=== PATIENT | male | born 2000 | race African-American/Black ===

== ENCOUNTER 2023-12-20 16:41 | Emergency (ER) | payer SELFPAY ==
[2023-12-20 17:38] LABS: Absolute Lymphocytes (CBC) 1.5 K/uL (0.7-4.9); Absolute Monocytes 1.1 K/uL (0.1-1.3); Absolute Neutrophil 13.8 K/uL (1.8-8.0); Basophils % 0.2 % (0-1.3); Eosinophils % 0.1 % (0-4.4); Hematocrit 46.6 % (39.6-49.0); Hemoglobin 15.4 g/dL (13.6-17.9); Lymphocytes % 8.9 % (15.3-44.8); MCV 81.9 fL (80-100); Monocytes % 6.7 % (3.3-12.3); Neutrophils % 84.1 % (41.7-73.7); Platelets 292 thou/uL (152-406); RBC Red Blood Cell Count 5.69 M/uL (4.33-5.43); Red Cell Distribution Width 14.5 % (12.1-15.2)
[2023-12-20 18:14] LABS: Albumin 4.8 g/dL (3.4-5.0); Albumin/Globulin Ratio 1.3 (1.1-1.8); Anion Gap 11.7 mEq/L (5.0-15.0); Bilirubin Total 0.7 mg/dL (0.2-1.0); Globulin 3.8 g/dL (2.3-3.5); Potassium 3.7 mEq/L (3.5-5.1); Protein, Total 8.6 g/dL (6.4-8.2)
[2023-12-20] MEDS ORDERED: NA CHLORIDE 0.9% 1,000 ML ONE (18:37)
--- NOTE | 2023-12-20 19:01 | ER ---
Nurse's Notes [facility] Name: Sandoval Clifford Age: 23 yrs Sex: Male : 2000 Arrival Date: 12/20/2023 Time: 16:41 Bed 17 [facility] MD: Diagnosis: Heat fatigue, transient Presentation: 12/19 16:47 Chief complaint: Patient states: working outside, nausea/vomiting. Coronavirus screen: aa5 nausea, vomiting. Ebola Screen: Patient denies travel to an Ebola-affected area in the 21 days before illness onset. Initial Sepsis Screen: Does the patient meet any 2 criteria? No. Patient's initial sepsis screen is negative. Does the patient have a suspected source of infection? No. Patient's initial sepsis screen is negative. Risk Assessment: Do you want to hurt yourself or someone else? Patient reports no desire to harm self or others. Onset of symptoms was December 20, 2023. 16:47 Acuity: SIMONE 3 aa5 16:47 Method Of Arrival: EMS: [facility] aa5 16:47 Care prior to arrival: Medication(s) given: Normal saline infusion, 1000 mL, zofran 4 aa5 mg, IV initiated. 18 GA, in the right antecubital area, Glucose check: 76. Historical: - Allergies: 16:47 No Known Allergies; aa5 - PMHx: 16:47 None; aa5 - PSHx: 16:47 None; aa5 - Immunization history:: Adult Immunizations unknown. - Infectious Disease History:: Denies. - Social history:: Smoking status: Reported history of juuling and/or vaping. Screenin:42 [facility] ED Fall Risk Assessment (Adult) History of falling in the last 3 months, mb9 including since admission No falls in past 3 months (0 pts) Confusion or Disorientation No (0 pts) Intoxicated or Sedated No (0 pts) Impaired Gait No (0 pts) Mobility Assist Device Used No (0 pt) Altered Elimination No (0 pt) Score/Fall Risk Level 0 - 2 = Low Risk Oriented to surroundings, Maintained a safe environment, Educated pt \T\ family on fall prevention, incl call for assistance when getting out of bed. Abuse screen: Denies threats or abuse. Nutritional screening: No deficits noted. Tuberculosis screening: No symptoms or risk factors identified. Assessment: 18:41 General: Appears in no apparent distress. Behavior is calm, cooperative. Pain: Denies mb9 pain. Neuro: Jensen Agitation-Sedation Scale (RASS): 0 - Alert and Calm Level of Consciousness is awake, alert, obeys commands, Oriented to person, place, time, situation, Appropriate for age. Cardiovascular: Patient's skin is warm and dry. Respiratory: Airway is patent Respiratory effort is even, unlabored, Respiratory pattern is regular, symmetrical. GI: Abdomen is flat, non-distended, Bowel sounds present X 4 quads. Abd is soft and non tender X 4 quads. : No signs and/or symptoms were reported regarding the genitourinary system. EENT: No signs and/or symptoms were reported regarding the EENT system. Derm: Skin is pink, warm \T\ dry. Musculoskeletal: Range of motion: intact in all extremities. Vital Signs: 16:47 BP 109 / 74; Pulse 90; Resp 18 S; Temp 97.5(TE); Pulse Ox 100% on R/A; Weight 54.43 kg aa5 (R); Height 5 ft. 6 in. (R); 18:42 BP 118 / 74; Pulse 84; Resp 16; Pulse Ox 100% on R/A; mb9 16:47 Body Mass Index 19.37 (54.43 kg, 167.64 cm) aa5 ED Course: 16:46 Patient arrived in ED. ec2 16:46 Munir Heath MD is Attending Physician. ec2 16:47 Arm band placed on. aa5 16:48 Triage completed. aa5 17:29 CK Sent. 6 17:29 CMP Sent. 6 17:29 CBC with Diff Sent. 6 17:29 Initial lab(s) drawn, by va, sent to lab. Inserted saline lock: 22 gauge in left bc6 antecubital area, using aseptic technique. Blood collected. 18:36 Hillary Meek, SHARITA is Primary Nurse. mb9 18:42 Placed in gown. Bed in low position. Call light in reach. Side rails up X 1. Provided mb9 Education on: press call light if needing anything. Client placed on continuous cardiac and pulse oximetry monitoring. NIBP monitoring applied. 18:42 No provider procedures requiring assistance completed. mb9 19:06 IV discontinued, intact, bleeding controlled, No redness/swelling at site. Pressure mb9 dressing applied. Administered Medications: 18:41 Drug: NS 0.9% IV 1000 ml IV at 1 bolus Per protocol; 1000 mL bolus Route: IV; Rate: 1 mb9 bolus; Site: left antecubital; 19:07 Follow up: Response: No adverse reaction; IV Status: Completed infusion mb9 Medication: 18:42 VIS not applicable for this client. mb9 Outcome: 19:00 Discharge ordered by . ec2 19:06 Discharged to home ambulatory, mb9 19:06 Condition: stable 19:06 Discharge instructions given to patient, Instructed on discharge instructions, follow up and referral plans. Demonstrated understanding of instructions, follow-up care, 19:07 Patient left the ED. mb9 Signatures: Guerda Palumbo RN RN aa5 Hillary Meek RN RN mb9 Jazzy Daniels6 Munir Heath MD MD ec2 Corrections: (The following items were deleted from the chart) 19:06 18:42 Pulse 84bpm; Resp 16bpm; Pulse Ox 100% RA; mb9 mb9
--- NOTE | 2023-12-20 19:01 | EDPHYS ---
Physician Documentation [facility] Name: Sandoval Clifford Age: 23 yrs Sex: Male : 2000 Arrival Date: 12/20/2023 Time: 16:41 Bed 17 Private MD: ED Physician Munir Heath HPI: 12/19 16:46 This 23 yrs old Male presents to ER via Unassigned with complaints of concern for ec2 dehydration. 16:46 Patient arrives today due to concern for dehydration. States that he was working ec2 outdoors, working in the heat, felt lightheaded, nauseous and dehydrated like he was in a pass out. Denies any other symptoms, EMS reports they had given him a liter of crystalloid as well as Zofran, patient reports improvement in his nausea. . Historical: - Allergies: 16:47 No Known Allergies; aa5 - PMHx: 16:47 None; aa5 - PSHx: 16:47 None; aa5 - Immunization history:: Adult Immunizations unknown. - Infectious Disease History:: Denies. - Social history:: Smoking status: Reported history of juuling and/or vaping. ROS: 16:46 Constitutional: as per hpi ec2 Exam: 16:46 Constitutional: GEN: NAD Head: atraumatic Eyes: EOMI Ears: External ears are ec2 normal. CV: regular rate LUNGS: no respiratory distress ABD: non-distended SKIN: no evidence of rashes MSK: no evidence of trauma NEURO: moves all extremities equally Vital Signs: 16:47 BP 109 / 74; Pulse 90; Resp 18 S; Temp 97.5(TE); Pulse Ox 100% on R/A; Weight 54.43 kg aa5 (R); Height 5 ft. 6 in. (R); 18:42 BP 118 / 74; Pulse 84; Resp 16; Pulse Ox 100% on R/A; mb9 16:47 Body Mass Index 19.37 (54.43 kg, 167.64 cm) aa5 MDM: 16:46 Patient medically screened. ec2 16:46 Data reviewed: vital signs. ED course: Patient arrives today due to concern for ec2 dehydration as well as lightheadedness. Examination remarkable for well-appearing nontoxic and appears otherwise in no acute distress with a reassuring examination. Will obtain lab work, CK, give crystalloid and further assess. Differential diagnose include dehydration, electrolyte disturbances, anemia, rhabdomyolysis.. 18:09 ED course: Slight leukocytosis noted, patient without any obvious bacterial source of ec2 infection. Patient does have some nausea and vomiting, suspect this is more heat related . 18:27 ED course: Metabolic profile shows renal dysfunction with a creatinine 1.74 and a GFR ec2 55, CK is detectable at 273. . 19:00 ED course: On reassessment patient is well-appearing in no acute distress, reports ec2 marked improvement in symptoms. Will discharge home. Return precautions given. 12/19 16:46 Order name: CBC with Diff; Complete Time: 18:09 ec2 12/19 16:46 Order name: CMP; Complete Time: 18:27 ec2 12/19 16:46 Order name: CK; Complete Time: 18:27 ec2 Administered Medications: 18:41 Drug: NS 0.9% IV 1000 ml IV at 1 bolus Per protocol; 1000 mL bolus Route: IV; Rate: 1 mb9 bolus; Site: left antecubital; 19:07 Follow up: Response: No adverse reaction; IV Status: Completed infusion mb9 Disposition Summary: 12/20/23 19:00 Discharge Ordered Notes: Location: Home ec2 Condition: Stable ec2 Diagnosis - Heat fatigue, transient ec2 Followup: ec2 - With: Private Physician - When: - Reason: Re-evaluation by your physician Discharge Instructions: - Discharge Summary Sheet ec2 - Preventing Heat Exhaustion, Adult ec2 Forms: - Medication Reconciliation Form ec2 - Antibiotic Education ec2 - Prescription Opioid Use ec2 - Patient Portal Instructions ec2 - Leadership Thank You Letter ec2 Signatures: Dispatcher [employer] Guerda Smith, RN RN aa5 Hillary Meek RN RN mb9 Munir Heath MD MD ec2
[2023-12-20 20:17] VITALS: BP 118/74; TEMP 97.5; O2SAT 100
== END 2023-12-20 19:07 | disposition home or self-care (01) ==
LOC: ER 16:41
DX: T67.6XXA Heat fatigue, transient, initial encounter (principal)
CPT/HCPCS: 36415; 80053; 82550; 85025; 99284; J7030